=== PATIENT | male | born 1975 ===

== ENCOUNTER 2022-07-08 08:14 | Outpatient (REF) | payer SELFPAY ==
--- NOTE | 2022-07-08 09:13 | MHC.AU.HA2 ---
Hearing Instrument Fitting- Adult- Binaural Date of Visit: 07/08/22 Draw Frame Tender Used: ASL- In Person Hearing Instruments Dispensed: Right Ear: Make, Model, Color, Serial Number: Marilou Lacey P70 UP Biege [id number] Drawing Kiln Supervisor Repair Warranty: 08/17/2025 Drawing Kiln Supervisor Loss and Damage Warranty: 08/17/2025 [facility] Service Plan: 07/08/2023 Battery Size: 675 Earmold/Dome/CShell/SlimTip: Microsonic Shell, [id number], Light ice tea, Pressure Vent Left Ear: Make, Model, Color, Serial Number: Marilou Lacey P70 UP Biege [id number] Drawing Kiln Supervisor Repair Warranty: 08/17/2025 Drawing Kiln Supervisor Loss and Damage Warranty: 08/17/2025 [facility] Service Plan: 07/08/2023 Battery Size: 675 Earmold/Dome/CShell/SlimTip: Microsonic Shell, [id number], Light ice tea, Pressure Vent Summary of Fitting: Feedback tool and die manager run. Verifit performed and levels adjusted to better reach targets. Patient felt the right side needed to go up more. Raised overall right gain by 3 steps. Patient was pleased with the sound and did not feel any additional adjustments were needed at this time. Hearing aid care and maintenance discussed. Paired hearing aids to his phone and the matias. Recommendations: Patient is an experienced hearing aid user and will follow-up as needed. Recommended maintenance in 6 months, or sooner if needed. Diagnosis Code(s): Primary Diagnosis: H90.3 Bilateral Sensorineural Hearing Loss Signature: Provider: Abe Brooks, [facility]
== END 2022-07-08 08:15 | disposition home or self-care (01) ==
LOC: HO.HAP 08:14
PROVIDERS: Visit Provider Family Medicine
DX: Z46.1 Encounter for fitting and adjustment of hearing aid (principal); H90.3 Sensorineural hearing loss, bilateral
CPT/HCPCS: 92595; V5011; V5020; V5160; V5261; V5264; V5266; V5275